=== PATIENT | male | born 1945 | race Hispanic/Latino ===

== ENCOUNTER → 2018-09-28 | Outpatient (CLI) | payer MEDICARE ==
--- NOTE | 2018-09-28 18:37 | Diagnostic Imaging Report ---
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 Technique: Transaxial noncontrast images from the skull base through the vertex were obtained. Sagittal and coronal reformatted images were done. Dose modulation, iterative reconstruction, and/or weight based adjustment of the mA/kV was utilized to reduce the radiation dose to as low as reasonably achievable. Comparison: None. Findings: Scalp: No abnormalities. Bones: Intact. No fractures. No blastic or lytic lesions. Brain sulci: Appropriate for patient's age. Ventricles: Normal in size and configuration. No hydrocephalus. . Extra-axial space: No abnormalities. Parenchyma: There are subtle patchy areas of low-attenuation within subcortical and periventricular white matter, nonspecific, but could represent microvascular ischemic disease. A chronic lacunar infarct is identified in the left striatocapsular region. No masses, hemorrhage, or acute or chronic cortical based vascular insults. Suprasellar region: No abnormalities. Craniocervical junction: The foramen magnum is patent. No Chiari one malformation. Incidental findings: Atherosclerotic calcification of the cavernous and supraclinoid internal carotid arteries. Impression: 1. No acute intracranial finding. 2. Mild chronic microvascular ischemic change. 3. Chronic left striatocapsular lacunar infarct. Signed by: Dr. Chiara Maza M.D. on 09/28/2018 6:34 PM
== END ==
LOC: CT 16:18
PROVIDERS: ATTEND Ophthalmology
DX: H49.02 Third [oculomotor] nerve palsy, left eye (principal)
CPT/HCPCS: 70450